=== PATIENT | female | born 1960 | race Hispanic/Latino ===

== ENCOUNTER → 2024-12-11 | Day surgery (SDC) | payer MEDICARE ==
[~2024-12-11] MED LIST: ATORVASTATIN CA20 MG PO; LACTATED RINGER'S 1,000 ML ONE; LIDOCAINE HCL 2% LOCAL INJ 5 ML SDV VIAL INJ ONE; PROPOFOL IV EMULSION 10 MG/ML 20 ML VIAL ONE
[2024-12-11 07:42] VITALS: TEMP 98
[2024-12-11 08:00] VITALS: BP 103/51; PULSE 76; RESP 14; O2SAT 99
== END | disposition home or self-care (01) ==
LOC: OR 05:56
PROVIDERS: ATTEND Internal Medicine Gastroenterology
DX: Z09 Encounter for follow-up examination after completed treatment for conditions other than malignant neoplasm (principal); Z86.0100 Personal history of colon polyps, unspecified; K64.8 Other hemorrhoids; E78.00 Pure hypercholesterolemia, unspecified; Z78.9 Other specified health status; Z79.899 Other long term (current) drug therapy; Z68.25 Body mass index [BMI] 25.0-25.9, adult
CPT/HCPCS: 45378; J2003; J2704; J7121